=== PATIENT | female | born 1980 | race Caucasian/White ===

== ENCOUNTER → 2016-06-23 | Outpatient (CLI) | payer BC ==
--- NOTE | ~2016-06-23 | US5 ---
[facility] A Service of [facility] RADIOLOGY TEXT RESULTS PATIENT: REGIS MCKEON LOCATION: [facility] : 80 UNIT #: [id number] AGE: [address]: LUDWIN OBRIEN APRN SEX: F ORDER DR: [id number] [facility] [address] [place], [place] [address] [id number] O MR#: [id number] Acc #: [id number] NAME: REGIS MCKEON : 1980 SEX: F STUDY DATE/TIME: 06/23/2016 7:55 UNIT: [facility] ROOM: STUDY DESCRIPTION: US Abdominal Complete Attending Physician: Ludwin Obrien Aprn Referring Physician: Ludwin Obrien Aprn Ordering Physician: Ludwin Obrien Aprn Primary Care Physician: Ludwin Obrien Aprn MEDICAL IMAGING REPORT This report is preliminary unless electronic signature is present EXAM Complete abdominal ultrasound DATE 06/23/2016 HISTORY Abdominal discomfort, pain with upset stomach for 2 months. Pain radiates between the shoulder blades. No previous history of valve surgery. COMPARISON No prior imaging studies at this institution for comparison. FINDINGS The abdominal aorta is not visualized in its entirety. The proximal to mid abdominal aorta measures a maximal 2 cm and demonstrates normal spectral Doppler flow. IVC demonstrates an unremarkable medina-scale appearance. The liver demonstrates diminished acoustic transmission and mildly coarsened echotexture which may reflect changes of hepatic steatosis. Liver size is within normal and is 15.6 cm. Right kidney measures 10.6 cm and the left kidney measures 12.1 cm in length without focal cortical lesion, no shadowing stone or hydronephrosis. Spleen size is normal, 13 cm in length. No ascites is evident. The gallbladder is contracted but no definite gallbladder sludge or gallstones are seen. No definite abnormal gallbladder wall thickening is identified. No definite intrahepatic biliary ductal dilation is seen. Common bile duct caliber is normal, 3 mm. Portions of the pancreas are obscured by bowel gas but the imaged portion of the pancreas appears unremarkable. 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 Sonographic features suggestive of hepatic steatosis. 2. Gallbladder is contracted, but no definite sonographic evidence of cholecystitis or gallbladder sludge or gallstones. 3. Portions of the pancreas are obscured by bowel gas. Visualized pancreas appears unremarkable. 4. Remainder of the examination is unremarkable. Dictated by... Renee Lau M.D. THIS IS AN ELECTRONICALLY VERIFIED REPORT Renee Lau M.D. at 06/24/2016 7:[address] [facility]/tee TD: 06/23/2016 14:39 JOB #: [id number] MEDICAL IMAGING REPORT Page 1 of 1 COPY
== END | disposition home or self-care (01) ==
LOC: CGUS 07:22
DX: R10.9 Unspecified abdominal pain (principal); K82.0 Obstruction of gallbladder
CPT/HCPCS: 76700